=== PATIENT | male | born 1980 | race Caucasian/White ===

== ENCOUNTER 2018-08-22 13:08 | Emergency (ER) | payer OTHER ==
[2018-08-22] MEDS ORDERED: DECADRON IV ONE (13:59)
[2018-08-22] MEDS ORDERED: BENADRYL IV ONE (13:59)
[2018-08-22] MEDS ORDERED: PEPCID IV ONE (13:59)
[2018-08-22] MEDS ORDERED: SOLU-Medrol IV ONE (14:03)
--- NOTE | 2018-08-22 14:03 | Emergency Department Report ---
HPI - General Chief Complaint: Allergic Reaction Time Seen by Provider: 08/22/18 13:59 - HPI HPI: Room 5 The patient is a 38-year-old male presenting with chief complaint of allergic reaction. The patient states he was outside working when he was stung by bees once to the back and left shoulder once to the right hairline. Patient now feels dizzy weak and has diffuse itching erythema and hives. 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 Patient currently denies shortness of breath Location: [See above] Duration: [See above] Quality: [See above] Severity: [See above] Modifying factors: [see above] Context: [see above] Mode of transportation: [not driving] ED Past Medical Hx - Past Medical History Previous Medical History?: No - Surgical History Past Surgical History?: No - Family History Family history: no significant - Social History Smoking Status: Current Some Day Smoker Substance Use Type: Alcohol (occasional) - Medications Home Medications: Home Medications Medication Instructions Recorded Confirmed Last Taken Type EPINEPHrine (NF) [Epipen (Nf)] 0.3 mg IM ONCE PRN #0.6 ml 08/22/18 Unknown Rx Famotidine [Pepcid] 20 mg PO BID #6 tablet 08/22/18 Unknown Rx Prednisone [predniSONE 10 mg 10 mg PO .TAPER #1 tab.ds.pk 08/22/18 Unknown Rx (6-Day Pack, 21 Tabs)] diphenhydrAMINE [Benadryl CAP] 50 mg PO Q6HR #24 capsule 08/22/18 Unknown Rx ED Review of Systems ROS: Stated complaint: ALLERGIC REACTION Other details as noted in HPI Constitutional: weakness Eyes: denies: eye pain ENT: denies: throat pain Respiratory: denies: shortness of breath Cardiovascular: denies: chest pain Endocrine: no symptoms reported Gastrointestinal: denies: abdominal pain Genitourinary: denies: dysuria Musculoskeletal: denies: back pain Skin: rash, pruritus Neurological: headache Physical Exam - Physical Exam Vital Signs: Vital Signs 08/22/18 13:14 Temperature 97.7 F Pulse Rate 126 H Respiratory 22 Rate Blood Pressure 146/70 O2 Sat by Pulse 93 Oximetry Physical Exam: GENERAL: The patient is well-developed well-nourished male lying on stretcher appearing to be in mild discomfort. [] HEENT: Normocephalic. Atraumatic. Extraocular motions are intact. Patient has moist mucous membranes. NECK: Supple. No stridor CHEST/LUNGS: Clear to auscultation. There is no respiratory distress noted. HEART/CARDIOVASCULAR: Regular. There is tachycardia. There is no gallop rub or murmur. ABDOMEN: Abdomen is soft, nontender. Patient has normal bowel sounds. There is no abdominal distention. SKIN: There is no rash. There is no edema. There is no diaphoresis. NEURO: The patient is awake, alert, and oriented. The patient is cooperative. The patient has normal speech MUSCULOSKELETAL:There is no evidence of acute injury. ED Course Vital Signs 08/22/18 13:14 Temperature 97.7 F Pulse Rate 126 H Respiratory 22 Rate Blood Pressure 146/70 O2 Sat by Pulse 93 Oximetry - Reevaluation(s) Reevaluation #1: 08/22/18 15:15 Patient states he feels improved. ED Medical Decision Making - Differential Diagnosis allergic reaction Critical care attestation.: If time is entered above; I have spent that time in minutes in the direct care of this critically ill patient, excluding procedure time. ED Disposition Clinical Impression: Allergic reaction Disposition: DC-01 TO HOME OR SELFCARE Is pt being admited?: No Does the pt Need Aspirin: No Condition: Stable Instructions: Urticaria (ED), Anaphylaxis (ED) Additional Instructions: Return to the emergency department immediately should you develop worsening symptoms, fever, inability to tolerate food or liquid or any other concerns. 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 Please follow-up with her for further evaluation) Time of Disposition: 15:18
[2018-08-22] MEDS ORDERED: NACL 0.9% 1000 ML 1,000 ML IV ONE (14:04)
[2018-08-22] MEDS ORDERED: DECADRON ONE (14:15)
[2018-08-22 18:47] VITALS: BP 122/78
== END 2018-08-22 16:45 | disposition home or self-care (01) ==
LOC: ED 13:08
DX: T78.40XA Allergy, unspecified, initial encounter (principal); R42 Dizziness and giddiness; F17.200 Nicotine dependence, unspecified, uncomplicated; Y92.89 Other specified places as the place of occurrence of the external cause
CPT/HCPCS: 96361; 96374; 96375; 99283; J1200; J2930; J7030; J1100